=== PATIENT | male | born 1995 | race Caucasian/White ===

== ENCOUNTER 2017-09-20 20:22 | Emergency (ER) | payer BC, SELFPAY ==
[2017-09-20 20:23] VITALS: BP 159/110; PULSE 71; RESP 16; TEMP 37.3; O2SAT 97; BMI 24.5
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
--- NOTE | 2017-09-20 21:32 | ED.DEP ---
ED Disposition - Plan for ED Patient: Disposition: Home or Assisted Living Chief Complaint: Burn Instructions: ED Burn Thermal D 07 06 Dressing Referrals: NOT,DEFINED [NON-STAFF] -
[2017-09-20] MEDS: oxyCODONE 5 MG Tablet PO (21:45)
[2017-09-20] MEDS: BACITRACIN 15 GM Tube 1 APPLIC TOPICAL (21:52)
[2017-09-20 22:46] VITALS: BP 118/77; PULSE 61; RESP 16; O2SAT 96
== END 2017-09-20 22:47 | disposition home or self-care (01) ==
PROVIDERS: Emergency Provider Emergency Medicine
DX: T23.162A Burn of first degree of back of left hand, initial encounter (principal); T23.161A Burn of first degree of back of right hand, initial encounter; T20.17XA Burn of first degree of neck, initial encounter; X08.8XXA Exposure to other specified smoke, fire and flames, initial encounter; Y93.G2 Activity, grilling and smoking food; Y92.9 Unspecified place or not applicable; Y99.9 Unspecified external cause status
CPT/HCPCS: 99283

== ENCOUNTER 2021-10-16 15:58 | Day surgery (SDC) | payer OTHER, SELFPAY ==
[2021-10-16] VITALS (7 sets, daily range): BP systolic 110–168; BP diastolic 60–133; PULSE 50–76; RESP 16–25; TEMP 36.1–36.9; O2SAT 94–99; BMI 24.3
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
[2021-10-16] MEDS: Ondansetron 4 MG/2 ML Vial IV (16:11)
[2021-10-16] MEDS: Morphine 4 MG/ML Syringe IV (16:11)
[2021-10-16] MEDS: 0.9% Normal Saline 1,000 ML 150 ML IV (16:11)
[2021-10-16 16:21] LABS: Absolute Lymphocyte Count 4.74 X10^3/uL (0.83-4.51); Absolute Neutrophil Count 4.8 X10^3/uL (2.0-7.7); Basophil# 0.06 X10^3/uL; Basophil% 0.5 % (0-1); Eosinophil# 0.43 X10^3/uL; Eosinophils% 3.9 % (0-5); Hematocrit 44.3 % (40-54); Hemoglobin 15.4 g/dL (13.0-16.5); Lymphocyte # 4.74 X10^3/ul (0.83-4.51); Lymphocyte % 43.1 % (19-41); Mean Corp Hgb Conc 34.8 g/dL (32-36); Mean Corpuscular Volume 94.9 fL (80-94); Mean Platelet Vol. 12.5 fl (6.2-12.0); Monocyte# 0.94 X10^3/uL; Monocyte% 8.5 % (0-10); NRBC Flagged by Analyzer 0 % (0-5); Neutrophil % 43.6 % (47-70); POSITIVE MORPHOLOGY YES; Platelet Count 254 K/mm3 (150-450); RBC Distribution Width SD 41.7 fl (35.1-43.9); Red Blood Count 4.67 M/mm3 (4.6-6.2)
[2021-10-16] MEDS: Diphth,Pertuss(Acell),Tet Vac 0.5 ML Vial IM (16:25)
--- NOTE | 2021-10-16 16:28 | RAD_ITS ---
EXAM: XR LEFT FOOT COMPLETE, 3 OR MORE VIEWS : 1995 CLINICAL INDICATION: Injury/Pain TECHNIQUE: Frontal, lateral and oblique views of the left foot. This report was created using [employer] [place] - 2 report generation technology. COMPARISON: None. FINDINGS: BONES/JOINTS: Unremarkable. No acute fracture. No subluxation. Normal alignment. Preservation of the joint space. No sclerotic or destructive changes observed. SOFT TISSUES: Unremarkable. No soft tissue swelling or gas. No radiopaque foreign body. RAD/Foot min 3 Views IMPRESSION: Negative left foot x-rays. at 1646 Reported and signed by: Pedro Dodge MD Electronically Signed: Pedro Dodge MD at 16:45 EDT ,
[2021-10-16] MEDS: DiphenhydrAMINE 50 MG/ML Syringe 25 MG IV (16:48)
[2021-10-16] MEDS: Cefazolin 1 GM/50 ML BAG IV (16:49)
[2021-10-16 17:01] LABS: Anion Gap 7 (5-15); BUN 7 mg/dL (7-18); BUN/Creat Ratio 6.8 RATIO (10-20); Calcium,Total 8.2 mg/dL (8.5-10.1); Chloride 103 mmol/L (98-107); Creatinine, Serum 1.03 mg/dL (0.70-1.30); EST Glomerular Filtration Rate 92 mL/min (>60); Est Glom Filt Rate - Afr Amer 111 mL/min (>60); Estimated Creatinine Clearance 104.22 ml/min; Glucose 130 mg/dL (74-106); Sodium Level 138 mmol/L (136-145)
[2021-10-16] MEDS: HYDROmorphone 1 MG/ML Syringe IV (17:02)
[2021-10-16 17:12] LABS: Differential Indicated SCAN CRITERIA MET
[2021-10-16 17:14] LABS: Atypical Lymphocyte 1+ %; Platelet Estimate ADEQUATE (ADEQ); Reactive Lymphocyte 1+; Red Cell Morphology NORM C+C NORMAL (NORM C&C)
[2021-10-16] MEDS: Potassium Chloride 20mEq/100mL 20 MEQ/100 ML IV.SOLN. 50 MEQ IV (17:45)
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
[2021-10-16] MEDS: Lactated Ringers 1,000 ML 125 ML IV (17:50)
[2021-10-16 17:55] LABS: Magnesium 1.5 mg/dL (1.6-2.6)
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
[2021-10-16] MEDS: Ketorolac 30 MG/ML Syringe IV (20:15)
--- NOTE | 2021-10-16 20:38 | DCINST_ITS ---
Discharge Instructions Diet Discharge Diet: No restrictions Activity Discharge Activity: May Not Drive (while taking narcotics) and May Shower (keep splint clean and dry) May resume sexual activity in: No Restrictions Ice area for (Minutes): 20 Weight Bearing Status: No weight bearing Keep extremity elevated above heart level: Operative Extremity Dressing / Incision Call your doctor if your incision/area has: Continuous Slow Oozing, Sudden Increased Bleeding, Increased Pain/ Swelling, Increased Redness and Foul Smelling Discharge Call your doctor if you observe: Fever of 101 or Higher and Numbness or Tingling Change Dressing in: leave in place till F/U Follow Up Care Please Follow Up With: Adonay Monaco MD When: 2 weeks phone [phone] [facility] [place] request follow-up with physician medical laboratory assistant Santo Goldstein PA-C Test Results: Test results from this visit will be discussed in further detail at your follow-up appointment, if applicable. Discharge Plan Admission Admit Date/Time: 10/16/21 17:08 Attending Provider: Adonay Monaco Primary Care Provider: Care Physician,No Primary Discharge Orders/Prescriptions Prescriptions: New acetaminophen 500 mg Tablet 1,000 mg PO Q8 Qty: 0 RF: 0 oxycodone 5 mg Tablet 5 mg PO Q6H PRN PRN (Reason: Pain Score 6-10) Qty: 0 RF: 0 Referrals / Follow Up: Care Physician,No Primary [Primary Care Provider] - Disposition Discharge Orders: Discharge Patient (Routine); Ordered 10/16/21 Ordered By: Dr. Adonay Monaco
--- NOTE | 2021-10-16 20:43 | OP.PCM_ITS ---
Report of Operation Date of Procedure: 10/16/21 Pre-Operative Diagnosis: Right both bone forearm fracture, grade 1 open ulna Post-Operative Diagnosis: Right both bone forearm fracture, grade 1 open ulna Surgery/Procedure Performed:: 1. Open reduction internal fixation right both bone forearm fracture 2. Irrigation debridement 3 cm skin, subcutaneous tissue, fat, fascia and muscle Description of Surgical Findings:: Small 2 mm focal communicated deep with the ulna fracture. Well reduced fracture Surgeon: Adonay Monaco alteration manager: Ayse Kimble Type of Anesthesia: General Anesthesiologist: Jeanne Curiel Special Medications: 2 g Ancef prior to inflation of tourniquet Estimated Blood Loss (mL): 15 Fluids Replaced: 1500 mL crystalloid Description of Procedure: On the date of the procedure patient was seen in consultation in the preoperative area. After full assessment the right upper extremity was marked and everyone agreed upon the procedure to be performed. Indications for surgery are noted in the history and physical. After I assessed the patient and anesthesia assessed the patient he was taken back to the operating room where he was anesthetized on his bed and transferred to the operating table in the supine position. Anesthesia assumed control of the C- spine and airway prior to anesthetization and remained to control until the patient was awakened. All bony prominences identified well-padded. Right upper extremity was placed on an armboard and tourniquet was placed in the right upper arm. The arm was scrubbed with chlorhexidine scrub brush and gently wiped free of debris. At this time the right upper extremity was prepped in a sterile fashion using Betadine prep while the surgeon purchasing administrative assistant scrub. Upon reentering the room the right upper extremity was draped in a standard repeat fashion and timeout was called everyone agreed upon the side, the site, the procedure to be performed, patient's identity and antibiotics given. After the timeout was called incisions were marked on the volar aspect of the wrist for the radial approach and over the ulnar border for the ulnar approach. Based on the fracture we knew we had to create a significantly distal ulna incision. Additionally we marked out an ellipse over the open area on the ulnar border of the forearm. Once was done Esmarch bandage used to exsanguinate the extremity and tourniquet was placed up to 250 mmHg. Our attention was first placed on the volar aspect of the wrist where the incision was taken down through skin and subtenons tissue. We then incised the fascia and retracted the FCR and FPL ulnarly. The forearm was placed in a pronated position and we carefully removed the pronator from the radial border of the radius enough to visualize and fix the fracture. It was a simple oblique fracture and a clamp was placed on the fracture after irrigating out the wound and cleaning the bone and. After the clamp was placed live x-ray was used to verify fracture reduction in our attention was then turned towards the ulna. With the elbow flexed we incised the ulnar skin and carefully bluntly dissected down to the bone and fracture site. At the site of the puncture wound the wound was sharply debrided removing the necrotic skin edges and debris in the subcutaneous tissue fascia and muscle. In all this amounted to 3 cm of ellipse of this tissue. There not appear to be any gross debris down to the bone. Once we got to this point we carefully irrigated out the wound using copious amounts of normal saline. We then directed our attention towards fixing the fracture. There were 4 main fracture fragments one being a small butterfly fragment proximally with a middle portion and a distal portion including the radial head. We carefully pieced the fracture together using reduction clamps. After we adequately reduced the fracture live x-ray was used to verify fracture reduction. We then turned our attention to placing leg screws in the fractures. Our attention was first directed towards the radius where a 2.7 mm lag screw was placed in a lag screw by technique design holding the short oblique fracture together. We then directed our attention to the more proximal area and placed 2 screws fixing the middle fragment and proximal fragment to the butterfly fragment. Once this was stably fixed 1 additional 2.7 mm lag screw was placed across the distal fracture pattern. Once the foreleg screws were placed live x-ray was used to verify fracture fixation and alignment. Once we are happy with this the 7 hole plate was selected for the radius and felt to be an appropriate length. This was placed over the volar border of the radius and 2 screws were used to provisionally fix the plate one proximally and distally. We then directed our attention to the ulna where again a 9 hole plate was selected and we were able to place it on the volar border of the ulna and fix it with 2 screws. Initially the plate was fixed as distal as possible to get 3 screws in the distal fragment however this extended past the tip of the ulna making the plate too long. Based on the patient's bone quality we did elect to proximal as the plate to an appropriate position allowing us only 2 screws in the distal fragment however patient's bone quality provided adequate fixation. After provisionally fixing both plates and being happy with the plate placement one additional distal screw was placed in the ulna plate followed by 2 additional proximal screws and one in the central fragment. We again directed our attention to the radius where 2 additional screws were placed proximally a compression screw was placed distally and one final screw was placed distally. Live fluoroscopy was used to verify fracture reduction and plate placement. Once this was done the volar wound was copiously irrigated out normal saline fascia was left unrepaired skin was closed with 2-0 Vicryl and 4-0 nylon. Once we are done here we turned our attention to the ulnar wound where skin was closed with 2-0 Vicryl and 4-0 nylon after copiously irrigating out the wound once more. Xeroform dressings were placed. Well-padded volar splint was placed. Compressive dressing was placed. Tourniquet was let down prior to this and patient did have good radial and ulnar pulses as well as warm pink digits. Patient was placed in a sling awakened by anesthesia and transferred to the [facility] and transferred the PACU for recovery. Postop plan. Based on the open wound I will place the patient on antibiotics for 1 week. Patient will be nonweightbearing for a total of 6 weeks. We will remove the splint at his first postoperative visit in 2 weeks. Patient was given oxycodone and instructed to take Tylenol for postoperative pain. Grafts/Implants Used: Ulna: 9 hole 3.5 mm Synthes plate radius: 7 hole 3.5 mm Synthes plate Complications No intraoperative complications Admit VTE Documentation VTE Present on Admission: No VTE Mechan Device Prophylaxis: SCD's VTE Pharm Prophylaxis ordered?: No Reason prophylaxis not ordered:: Procedure Not Indicated
--- NOTE | 2021-10-16 21:35 | RAD_ITS ---
STUDY: X-RAY - RIGHT RADIUS AND ULNA REASON FOR EXAM: Male, 26 years old. SURGERY TECHNIQUE: 3 view(s) of the forearm. COMPARISON: 10/16/2021 FINDINGS: Limited soft tissue detail. Superimposed cast. Distal radial and old loss sideplate spanning the fractures with near-anatomic alignment. RAD/Forearm 2 Views IMPRESSION: ORIF distal tibia and fibula in near anatomic alignment. Electronically Signed: Ina Coronado MD at 6:52 EDT Reading Location ID and State: , Service support ,
== END 2021-10-16 22:05 | disposition home or self-care (01) ==
LOC: ED 16:44 → SDC 10-17 10:54 → MS3 10-17 10:55
PROVIDERS: Anesthesiology; Emergency Provider Emergency Medicine; Visit Provider Specialist
PROC: (CPT 25575; principal; 2021-10-16 17:40)
DX: S52.331B Displaced oblique fracture of shaft of right radius, initial encounter for open fracture type I or II (principal); S52.251B Displaced comminuted fracture of shaft of ulna, right arm, initial encounter for open fracture type I or II; S93.602A Unspecified sprain of left foot, initial encounter; V28.0XXA Motorcycle driver injured in noncollision transport accident in nontraffic accident, initial encounter; Y93.89 Activity, other specified; Y99.8 Other external cause status; Y92.89 Other specified places as the place of occurrence of the external cause; F17.210 Nicotine dependence, cigarettes, uncomplicated; Z86.16 Personal history of COVID-19
CPT/HCPCS: 25575; 11011; 01830; 64415; 73090; 73630; 76000; 80048; 83735; 85025; 90471; 90715; 99285; C1713; J7030; J7120; A4216; J2405

== ENCOUNTER 2022-07-11 12:01 | Emergency (ER) | payer BC, SELFPAY ==
[2022-07-11 12:02] VITALS: BP 154/77; PULSE 71; RESP 17; TEMP 35.8; O2SAT 97; BMI 25.9
--- NOTE | 2022-07-11 12:18 | RAD_ITS ---
STUDY: X-RAY - RIGHT ANKLE REASON FOR EXAM: Male, 27 years old. trauma TECHNIQUE: 3 view(s) of the ankle. COMPARISON: None. FINDINGS: Normal visualized distal tibia and fibula. Normal medial and lateral malleoli. Normal tibiotalar articulation and ankle mortise. Normal visualized talus and calcaneus. The visualized subtalar, talonavicular, calcaneocuboid and tarsal articulations are normal. There is no demonstrated fracture. Mild to moderate lateral soft tissue swelling is present. RAD/Ankle min 3 Views IMPRESSION: 1. Mild to moderate lateral soft tissue swelling Electronically Signed: Rudi Bermudez MD at 13:27 EST ,
--- NOTE | 2022-07-11 13:25 | EX.ED.DYSGE1 ---
HPI History of Present Illness Chief Complaint: Lower Extremity Injury Narrative Narrative: Patient presents with right ankle pain after he twisted his ankle. He has no other injuries. He has no knee pain or proximal fibular tenderness no foot pain. [facility] Medical History Pharyngitis Home Medications NK 07/11/22 [History Last Taken Unknown] Allergy/AdvReac Type Severity Reaction Status Date / Time Penicillins [PCN] Allergy Hives Verified 06/23/21 11:23 Surgical History [place] teeth extracted (Unknown) Social History household members: significant other housing: apartment current occupational status: employed current occupation: fabrication welder Smoking Status: Current every day smoker tobacco type: cigarettes alcohol intake: current details: occassional substance use type: does not use ROS ROS ED ROS Narrative Past medical history: none Medications: Reviewed Social history: Noncontributory Review of systems: Musculoskeletal: Ankle pain as in HPI Skin: No abrasions or lacerations Neurological: No weakness or paresthesias Hematologic: No easy bleeding or easy bruising EXAM Physical Exam Narrative Exam Narrative: Physical exam General: Patient does not appear in significant distress . Head: Normocephalic, Atraumatic Neck: No C-spine tenderness Cardiovascular: Normal distal pulses Back: Nontender, Normal Inspection. Extremities: Right ankle pain as in HPI Skin: No abrasions, no lacerations Neurological: Normal strength and sensation Const Vital Signs: 07/11/22 12:02 Temperature 96.5 F L Temperature Source Temporal Pulse Rate 71 Respiratory Rate 17 Blood Pressure 154/77 H Blood Pressure Mean 102 Pulse Ox 97 Oxygen Delivery Method Room Air MDM MDM MDM Narrative Medical decision making narrative: Patient's ankle x-ray interpreted by me is normal. There is soft tissue swelling. Patient will be placed in an Aircast, otherwise he will be discharged in stable condition. Discharge Plan Triage Chief Complaint: Lower Extremity Injury ED Provider: Yury Fletcher Dx/Rx/DC Orders Clinical Impression: Ankle contusion, Ankle sprain, Fall Instructions: ED Ankle Sprain (Adult) Prescriptions: No Action NK Primary Care Provider: Care Physician,No Primary Referrals: Care Physician,No Primary [Primary Care Provider] - 3-5 Days Disposition Disposition: Home, Self Care
== END 2022-07-11 13:57 | disposition home or self-care (01) ==
PROVIDERS: Emergency Provider Emergency Medicine; Visit Provider Emergency Medicine
DX: S90.01XA Contusion of right ankle, initial encounter (principal); S93.401A Sprain of unspecified ligament of right ankle, initial encounter; W19.XXXA Unspecified fall, initial encounter; F17.210 Nicotine dependence, cigarettes, uncomplicated
CPT/HCPCS: 73610; 99283